=== PATIENT | male | born 1945 | race Caucasian/White ===

== ENCOUNTER 2023-01-02 06:44 | Day surgery (SDC) | payer OTHER, MEDICARE ==
--- NOTE | 2022-12-29 14:43 | RAD REPORT ---
EXAM DESCRIPTION: RAD - Chest Pa And Lat (2 Views) - 12/29/2022 2:30 pm CLINICAL HISTORY: pre op left heart cath, carotid angio Chest pain. COMPARISON: No comparisons TECHNIQUE: PA and lateral views of the chest were obtained. FINDINGS: The lungs are hyperexpanded compatible with COPD. The heart is upper limit of normal in si ze. No fracture or aggressive bony process. Sternotomy wires. IMPRESSION: COPD without acute process identified. The USPSTF recommends annual screening for lung cancer with low-dose CT (LDCT) in adults aged 50 to 8 0 years who have a 20 pack-year smoking history and currently smoke or have quit within the past 15 y ears.
[2022-12-29 14:46] LABS: Absolute Lymphocytes (CBC) 1.8 K/uL (0.7-4.9); Hematocrit 38.8 % (39.6-49.0); Lymphocytes % 23.9 % (15.3-44.8); MCV 96.4 fL (80-100); MPV 7.2 fL (7.6-11.3); Platelets 159 thou/uL (152-406); RBC Red Blood Cell Count 4.03 M/uL (4.33-5.43)
[2022-12-29 14:51] LABS: Protime INR 1.06
[2022-12-29 15:07] LABS: Potassium 4.3 mEq/L (3.5-5.1)
[2023-01-02] MEDS ORDERED: HEPA 1000U/500MLS 2,000 UNIT/1,000 ML BAG IV ONE (06:51)
[2023-01-02] MEDS ORDERED: LIDOCAINE 1% 20 ML MDV ONE (06:51)
[2023-01-02] MEDS ORDERED: MIDAZOLAM HCL 2 MG/2 ML INJ ONE (06:52)
[2023-01-02] MEDS ORDERED: HEPARIN 5000 UNIT/ML 1 ML VIAL ONE (06:52)
[2023-01-02] MEDS ORDERED: FENTANYL CITR 100 MCG/2 ML ONE (06:52)
[2023-01-02] MEDS ORDERED: VERAPAMIL HCL 10 MG/4 ML VIAL IV ONE (06:52)
[2023-01-02] MEDS ORDERED: TICAGRELOR 90 MG TABLET PO ONE (06:53)
[2023-01-02] MEDS ORDERED: CLOPIDOGREL 75 MG TABLET ONE (06:53)
[2023-01-02] MEDS ORDERED: ASPIRIN 325 MG TAB ONE (06:53)
[2023-01-02] MEDS ORDERED: HEPARIN 10,000 UNIT/10 ML VIAL IV ONE (06:53)
[2023-01-02] MEDS ORDERED: NITROGLYCERIN/D5W 50 MG/250 ML BTL IV ONE (06:54)
[2023-01-02] MEDS ORDERED: ATROPINE SULF 1 MG/10 ML SYR IV ONE (06:54)
[2023-01-02] MEDS ORDERED: NA CHLORIDE 0.9% 500 ML ONE (07:09)
[2023-01-02 10:48] VITALS: TEMP 98
[2023-01-02 14:17] VITALS: BP 130/98; O2SAT 96
--- NOTE | 2023-01-03 17:09 | EKG ---
Test Date: 2022-12-29 Test Time: 15:10:48 Loading And Unloading Supervisor: ROBSON MEASUREMENT RESULTS: Intervals: Rate: 53 SC: 148 QRSD: 108 QT: 420 QTc: 394 [place]: P: 67 SC: 148 QRS: 67 T: -56 INTERPRETIVE STATEMENTS: Sinus bradycardia ST & T wave abnormality, consider inferolateral ischemia Abnormal ECG No previous ECG available for comparison Electronically Signed On 01-03-23 16:56:04 DEV TECHNICAL MGR by Suraj Arriola
== END 2023-01-02 14:25 | disposition home or self-care (01) ==
LOC: CCL 06:44
PROVIDERS: ATTEND Internal Medicine
DX: I25.10 Atherosclerotic heart disease of native coronary artery without angina pectoris (principal); I25.810 Atherosclerosis of coronary artery bypass graft(s) without angina pectoris; I25.82 Chronic total occlusion of coronary artery; I65.23 Occlusion and stenosis of bilateral carotid arteries; I51.7 Cardiomegaly; I10 Essential (primary) hypertension; E78.2 Mixed hyperlipidemia; Z79.82 Long term (current) use of aspirin; Z79.899 Other long term (current) drug therapy; Z88.0 Allergy status to penicillin
CPT/HCPCS: 93005; 85025; 80048; 36415; 83721; 85610; 85730; 71046; 93455; 36222; 76937; C1893; Q9966; J2001; J2250; J3010; J7040; J0461; J1644